=== PATIENT | female | born 1980 | race Two or more races ===

== ENCOUNTER 2019-09-21 15:59 | Emergency (ER) | payer MEDICAID ==
[~2019-09-21] VITALS: Ht 152.4 cm; Wt 67.0 kg
--- NOTE | 2019-09-21 16:30 | NUR ---
PT TO ROOM, SITTER REQUESTED.
[2019-09-21 17:25] LABS: MICROSCOPIC NOT IND
[2019-09-21 17:32] LABS: BASOPHILS # (AUTO) 0.08 x10^3/uL (0-0.1); BASOPHILS % (AUTO) 1 % (0-1); EOSINOPHILS # (AUTO) 0.05 x10^3/uL (0-0.4); EOSINOPHILS % (AUTO) 1 % (1-7); LYMPHOCYTES # (AUTO) 2.87 x10^3/uL (1-3.4); LYMPHOCYTES % (AUTO) 36 % (22-44); MD NO; MEAN CORPUSCULAR HEMOGLOBIN 32.4 pg (27.0-34.8); MEAN CORPUSCULAR HGB CONC 33.5 g/dL (32.4-35.8); MEAN CORPUSCULAR VOLUME 96.6 fL (80-100); MEAN PLATELET VOLUME 7.9 fL (7.4-10.4); MONOCYTES # (AUTO) 0.65 x10^3/uL (0.2-0.8); MONOCYTES % (AUTO) 8 % (2-9); NEUTROPHILS # (AUTO) 4.42 x10^3/uL (1.8-6.8); NEUTROPHILS % (AUTO) 55 % (42-75); PLATELET COUNT 271 x10^3/uL (130-400); RED BLOOD COUNT 3.99 x10^6/uL (3.82-5.3); RED CELL DISTRIBUTION WIDTH 14.3 % (9.6-15.2)
[2019-09-21 17:45] LABS: ALANINE AMINOTRANSFERASE 34 U/L (12-78); ALBUMIN 3.4 g/dL (3.4-5.0); ANION GAP 7 mmol/L (5-15); CALCIUM 7.3 mg/dL (8.5-10.1); CHLORIDE 121 mmol/L (98-107); CREATININE 0.61 mg/dL (0.55-1.02)
[2019-09-21 17:50] LABS: ALKALINE PHOSPHATASE 54 U/L (45-117); BILIRUBIN,TOTAL 0.3 mg/dL (0.2-1.0); TOTAL PROTEIN 6.5 g/dL (6.4-8.2)
[2019-09-21 17:52] LABS: SALICYLATE LEVEL < 1.7 mg/dL (2.8-20.0)
[2019-09-21 18:01] LABS: AMPHETAMINE SCREEN, URINE Negative (Negative); BARBITURATE SCREEN, URINE Negative (Negative); BENZODIAZEPINE SCREEN, URINE Negative (Negative); CANNABINOID SCREEN, URINE Negative (Negative); COCAINE SCREEN, URINE Negative (Negative); METHADONE SCREEN, URINE Negative (Negative); OPIATE SCREEN, URINE Negative (Negative)
[2019-09-21] MEDS ORDERED: OMNIPAQUE 350 MG/ML, 100ML BOTTLE ONE (20:33)
[2019-09-21] MEDS ORDERED: KETOROLAC 30 MG/1 ML ONE (20:54)
[2019-09-21] MEDS ORDERED: KETOROLAC 30 MG/1 ML IM ONE (21:00)
[2019-09-21 21:10] VITALS: BP 101/63
--- NOTE | 2019-09-21 21:14 | NUR ---
BREAK RN: RN NOTED THAT PT HAD IV IN PLACE. DISCUSSED WITH SAHARA PONCE AND PT TO BE MEDICATED WITH 15 MG IV TORADOL INSTEAD OF 30 MG IVPU. PT AO X 4. SKIN PWD. RESP EVEN AND UNLABORED. PT TEARFUL AND REQUESTING PHONE CALL. PT OFFERED TO USE PHONE AT END OF HALLWAY. PT REFUSED AT THIS TIME TO WAIT FOR PAIN MEDICATION TO "KICK IN". PT ON CONT BP, CARDIAC AND SPO2 MONITORS. CALL LIGHT WITHIN REACH. WILL CONT TO MONITOR PT.
[2019-09-21] MEDS ORDERED: KETOROLAC 30 MG/1 ML IVPush ONE (21:30)
== END 2019-09-21 21:37 | disposition home or self-care (01) ==
LOC: ED 20:58
DX: D25.9 Leiomyoma of uterus, unspecified (principal); N85.2 Hypertrophy of uterus; K76.0 Fatty (change of) liver, not elsewhere classified; F10.120 Alcohol abuse with intoxication, uncomplicated; R10.84 Generalized abdominal pain; Z72.9 Problem related to lifestyle, unspecified; Y90.0 Blood alcohol level of less than 20 mg/100 ml
CPT/HCPCS: 36415; 74177; 80053; 80307; 81003; 81025; 83690; 84443; 84703; 85025; 96374; 99285; J1885; Q9967